=== PATIENT | male | born 1985 | race Two or more races ===

== ENCOUNTER 2016-09-26 17:14 | Emergency (ER) | payer OTHER ==
[~2016-09-26] VITALS: Ht 172.7 cm; Wt 127.0 kg
[2016-09-26 17:20] VITALS: BP 138/71
[2016-09-26] MEDS ORDERED: PALI117D IM (17:29)
[2016-09-26] MEDS ORDERED: LITH600C PO (17:29)
[2016-09-26] MEDS ORDERED: HALO2TAB PO (17:29)
[2016-09-26] MEDS ORDERED: DIVA500T4 PO (17:29)
[2016-09-26] MEDS ORDERED: BENZ1TAB7 PO (17:29)
[2016-09-26] MEDS ORDERED: NAPROXEN 250 MG TABLET ONE (18:13)
[2016-09-26] MEDS ORDERED: NAPROXEN 250 MG TABLET PO ONE (18:30)
== END 2016-09-26 18:23 | disposition home or self-care (01) ==
LOC: ER 17:18
DX: M19.90 Unspecified osteoarthritis, unspecified site (principal); M25.561 Pain in right knee; M25.562 Pain in left knee; R10.9 Unspecified abdominal pain; R06.83 Snoring; G89.29 Other chronic pain; F32.9 Major depressive disorder, single episode, unspecified; F31.9 Bipolar disorder, unspecified
CPT/HCPCS: 99283; A4606; Z7610

== ENCOUNTER 2018-05-14 18:30 | Emergency (ER) | payer MEDICAID, OTHER ==
[~2018-05-14] VITALS: Ht 175.3 cm; Wt 87.5 kg
[~2018-05-14 18:30] MED LIST: BENZ1TAB7 PO; DIVA500T4 PO; HALO2TAB PO; LITH600C PO; PALI117D IM
[2018-05-14 18:51] VITALS: BP 160/79
== END 2018-05-14 19:58 | disposition home or self-care (01) ==
LOC: ER 18:35
DX: K62.89 Other specified diseases of anus and rectum (principal); N48.1 Balanitis; G89.29 Other chronic pain; M25.569 Pain in unspecified knee; F25.9 Schizoaffective disorder, unspecified; F31.9 Bipolar disorder, unspecified
CPT/HCPCS: 99283; A4606; Z7610

== ENCOUNTER 2018-06-05 14:01 | Emergency (ER) | payer OTHER ==
[~2018-06-05] VITALS: Ht 177.8 cm; Wt 136.1 kg
[2018-06-05 14:01] VITALS: BP 155/87
[2018-06-05] MEDS ORDERED: IBUPROFEN 600 MG TABLET PO ONE ×2 (14:57→15:00)
[2018-06-05] MEDS ORDERED: TDAP [DIPH/PERTUSSIS/TET] 0.5 ML VIAL IM ONE ×2 (14:58→15:00)
--- NOTE | 2018-06-05 15:27 | NUR ---
PATIENT LEFT BEFORE IMAGES PROVIDED
== END 2018-06-05 15:29 | disposition home or self-care (01) ==
LOC: ER 14:03
DX: S93.491A Sprain of other ligament of right ankle, initial encounter (principal); G89.29 Other chronic pain; F31.9 Bipolar disorder, unspecified; Z23 Encounter for immunization; W01.0XXA Fall on same level from slipping, tripping and stumbling without subsequent striking against object, initial encounter; Y93.89 Activity, other specified; Y92.89 Other specified places as the place of occurrence of the external cause; Y99.8 Other external cause status
CPT/HCPCS: 73600-TC; 90715; A4606; Z7610

== ENCOUNTER 2021-05-09 09:44 | Emergency (ER) | payer OTHER ==
[~2021-05-09] VITALS: Ht 175.3 cm; Wt 127.0 kg
[2021-05-09 09:57] VITALS: BP 135/96
--- NOTE | 2021-05-09 10:04 | NUR ---
BIB MOM,COUGH X 1 YEAR. NOTED THAT COUGH NOT BEING PRODUCTIVE AND INFREQUENT. IN ROOM AIR AND DENIES SOB. RESPIRATION REGULAR AND UNLABORED. DENIES PAIN. WILL CONTINUE TO MONITOR THE PATIENT.
[2021-05-09] MEDS ORDERED: KETOROLAC TROMETHAMINE INJ 30 MG/ML VIAL ONE (10:32)
[2021-05-09] MEDS ORDERED: predniSONE 20 MG TABLET ONE (10:32)
[2021-05-09] MEDS ORDERED: PRED20TA PO (10:34)
[2021-05-09] MEDS ORDERED: ALBU18HF2 INH (10:34)
[2021-05-09] MEDS: predniSONE 20 MG TABLET PO ONE (10:36)
[2021-05-09] MEDS ORDERED: ALBUTEROL FS 2.5 MG/3 ML VIAL.NEB ONE (10:36)
[2021-05-09] MEDS ORDERED: IPRATROPIUM NEB FS 0.5 MG/2.5 ML AMPUL.NEB ONE (10:36)
[2021-05-09] MEDS: KETOROLAC TROMETHAMINE INJ 30 MG/ML VIAL IM ONE (10:37)
[2021-05-09] MEDS: ALBUTEROL FS 2.5 MG/3 ML VIAL.NEB NEB ONE (10:38)
[2021-05-09] MEDS: IPRATROPIUM NEB FS 0.5 MG/2.5 ML AMPUL.NEB NEB ONE (10:38)
--- NOTE | 2021-05-09 11:48 | NUR ---
Patient discharged to home in stable condition. Written and verbal after care instructions given. Patient verbalizes understanding of instruction.
== END 2021-05-09 11:48 | disposition home or self-care (01) ==
LOC: ER 09:53
DX: J45.909 Unspecified asthma, uncomplicated (principal); M25.561 Pain in right knee; M25.562 Pain in left knee; G89.29 Other chronic pain; F32.9 Major depressive disorder, single episode, unspecified; Z79.899 Other long term (current) drug therapy
CPT/HCPCS: 71045; 94640; 96372; 99283; J1885; J7512